=== PATIENT | male | born 1945 | race Caucasian/White ===

== ENCOUNTER 2019-11-08 14:10 | Outpatient (CLI) | payer OTHER, MEDICARE | END 2019-11-08 23:59 | disposition home or self-care (01) | LOC: ROC 14:10 | PROVIDERS: ATTEND Radiology Radiation Oncology | DX: J43.9 Emphysema, unspecified (principal) | CPT/HCPCS: 99204; G0463 ==

== ENCOUNTER 2020-01-01 09:13 | Outpatient (CLI) | payer MEDICARE, OTHER | END 2020-01-01 23:59 | disposition home or self-care (01) | LOC: ROC 09:13 | PROVIDERS: ATTEND Radiology Radiation Oncology | DX: C34.32 Malignant neoplasm of lower lobe, left bronchus or lung (principal) | CPT/HCPCS: G0463 ==

== ENCOUNTER 2020-04-25 08:05 | Outpatient (CLI) | payer MEDICARE, OTHER | END 2020-04-25 23:59 | disposition home or self-care (01) | LOC: ROC 08:05 | PROVIDERS: ATTEND Radiology Radiation Oncology | DX: C34.32 Malignant neoplasm of lower lobe, left bronchus or lung (principal) | CPT/HCPCS: G0463; G2012 ==

== ENCOUNTER 2020-09-18 08:23 | Outpatient (CLI) | payer MEDICARE, OTHER | END 2020-09-18 23:59 | disposition home or self-care (01) | LOC: ROC 08:23 | PROVIDERS: ATTEND Radiology Radiation Oncology | DX: Z08 Encounter for follow-up examination after completed treatment for malignant neoplasm (principal); Z85.118 Personal history of other malignant neoplasm of bronchus and lung | CPT/HCPCS: G2012 ==